=== PATIENT | male | born 1970 | race Caucasian/White ===

== ENCOUNTER 2021-11-05 17:32 | Emergency (ER) | payer BC ==
[2021-11-05] MEDS ORDERED: cloNIDine 0.1 MG Tab PO ONE (18:13)
[2021-11-05] MEDS ORDERED: Magnesium Oxide 400 MG Tab PO ONE (19:39)
== END 2021-11-05 20:05 | disposition home or self-care (01) ==
LOC: MERGE 17:32 → LB.ED 17:32
DX: R41.82 Altered mental status, unspecified (principal); Z88.1 Allergy status to other antibiotic agents; Z88.8 Allergy status to other drugs, medicaments and biological substances; Z79.899 Other long term (current) drug therapy; Z20.822 Contact with and (suspected) exposure to COVID-19
CPT/HCPCS: 36415; 70450; 80053; 83735; 85025; 87635; 99284; A0425; A0429; A9270; U0002

== ENCOUNTER 2023-04-04 18:45 | Emergency (ER) | payer BC, MEDICARE ==
[2023-04-04] MEDS ORDERED: Sodium Chloride 0.9% 10 ML Syringe FLUSH PRN (19:07)
[2023-04-04] MEDS ORDERED: Ondansetron 4 MG/2 ML SDV IVPUSH ONE (19:08)
[2023-04-04] MEDS ORDERED: Morphine 4 MG/ML VIAL IVPUSH ONE ×2 (19:08→19:48)
[2023-04-04 19:13] LABS: BASOPHILS ABSOLUTE AUTO 0.02 K/uL (0.02-0.10); BASOPHILS PERCENT AUTO 0.2 % (0.0-0.5); HEMATOCRIT 39.2 % (40.0-54.0); HEMOGLOBIN 13.9 g/dL (13.0-18.0); LYMPHOCYTES ABSOLUTE AUTO 2.69 K/uL (1.50-4.00); LYMPHOCYTES PERCENT AUTO 25.6 % (20.0-40.0); MEAN CORPUSCULAR HEMOGLOBIN 32.6 pg (27.0-32.0); MEAN CORPUSCULAR HGB CONC 35.5 g/dL (31.0-35.0); MEAN CORPUSCULAR VOLUME 92 fL (76-96); MEAN PLATELET VOLUME 10.5 fL (6.0-10.0); MONOCYTES ABSOLUTE AUTO 1.15 K/uL (0.20-0.80); MONOCYTES PERCENT AUTO 10.9 % (3.0-10.0); NEUTROPHILS ABSOLUTE AUTO 6.56 K/uL (2.00-7.50); NEUTROPHILS PERCENT AUTO 62.3 % (45.0-70.0); PLATELET COUNT,PLT 116 K/uL (150-400); RED BLOOD CELL COUNT 4.27 M/uL (4.50-6.50); RED CELL DISTRIBUTION WIDTH 12.6 % (11.0-16.0); WHITE BLOOD CELL COUNT,WBC 10.5 K/uL (4.0-11.0)
[2023-04-04 19:30] LABS: A/G RATIO 1.4 (0.8-2.0); ALBUMIN 4.1 g/dL (3.4-5.0); ANION GAP 18.5 mmol/L (5.0-15.0); BILIRUBIN TOTAL 0.6 mg/dL (0.0-1.0); CALCIUM 9.4 mg/dL (8.5-10.1); CARBON DIOXIDE,CO2 22.1 mmol/L (21.0-32.0); EST CRCL DRUG DOSING (CG) 34.38 mL/min; POTASSIUM,K 4.6 mmol/L (3.5-5.1); PROTEIN TOTAL,TP 7.1 g/dL (6.4-8.2); TROPONIN I HIGH SENSITIVITY 6.2 pg/ml (<=60.4)
[2023-04-04] MEDS ORDERED: Simethicone 80 MG Tab.Chew PO ONE (20:24)
== END 2023-04-04 21:10 | disposition home or self-care (01) ==
LOC: LB.ED 18:45
DX: K30 Functional dyspepsia (principal); I10 Essential (primary) hypertension; Z88.1 Allergy status to other antibiotic agents; Z79.899 Other long term (current) drug therapy
CPT/HCPCS: 36415; 74176; 80053; 83690; 84484; 85025; 93005; 96374; 96375; 96376; 99284-25; A9270-GY; J2270; J2405